=== PATIENT | male | born 1960 | race Two or more races ===

== ENCOUNTER 2021-01-08 03:41 | Emergency (ER) | payer MEDICAID, OTHER ==
[~2021-01-08] VITALS: Ht 188 cm; Wt 95.3 kg
--- NOTE | 2021-01-08 03:50 | NUR ---
Pt brought back to room ED4B, placed on ED gurney in pos of comfort, pillow provided, resting comfortably awaiting EDMD for eval.
--- NOTE | 2021-01-08 04:00 | NUR ---
EDMD at bedside to eval pt.
[2021-01-08] MEDS ORDERED: PERM60CR4 TP (04:28)
[2021-01-08] MEDS ORDERED: NAPR-1164 PO (04:28)
[2021-01-08] MEDS ORDERED: KETOROLAC TROMETHAMINE 60 MG INJ IM ONE ×2 (04:30→04:43)
--- NOTE | 2021-01-08 04:30 | NUR ---
PCXR being taken currently
--- NOTE | 2021-01-08 04:35 | NUR ---
Pt given IM shot of toredol 60mg in Lt deltoid. pt tolerated well with no s/sx of reaction.
--- NOTE | 2021-01-08 04:50 | NUR ---
Pt given dc instructions and med info; pt confirmed understanding of aftercare. Pt has good color, temp and appearance. VSS, PE WNL. Pt ambulated out of dept with steady gait after signing out. No s/sx of distress present.
[2021-01-08 05:08] VITALS: BP 135/82
== END 2021-01-08 04:50 | disposition home or self-care (01) ==
LOC: ER 04:11
DX: S20.212A Contusion of left front wall of thorax, initial encounter (principal); V79.88XA Bus occupant (driver) (passenger) injured in other specified transport accidents, initial encounter; Y92.410 Unspecified street and highway as the place of occurrence of the external cause; M79.7 Fibromyalgia; J44.9 Chronic obstructive pulmonary disease, unspecified; B86 Scabies
CPT/HCPCS: 71101; 96372; 99283; J1885; A4663